=== PATIENT | male | born 1985 | race Caucasian/White ===

== ENCOUNTER 2019-12-04 11:39 | Inpatient (IN) | payer OTHER ==
[~2019-12-04] VITALS: Ht 172.7 cm; Wt 122.5 kg
[2019-12-04 15:14] LABS: PLATELET COUNT 229 x10^3mcL (130-400); RED CELL DISTRIBUTION WIDTH 14.1 % (11.5-14.5)
[2019-12-04 15:52] LABS: CALCIUM 9.3 mg/dL (8.5-10.1); CARBON DIOXIDE 14.4 mmol/L (21-32); CHLORIDE SERUM 98 mmol/L (98-107); CREATININE SERUM 0.8 mg/dL (0.7-1.3); GFR1 > 60 mL/min; GLUCOSE SERUM 278 mg/dL (74-106); POTASSIUM SERUM 4.7 mmol/L (3.5-5.1); SODIUM SERUM 136 mmol/L (136-145)
[2019-12-04 15:59] LABS: ALBUMIN 4.3 g/dL (3.4-5.0); ALKALINE PHOSPHATASE 133 U/L (46-116); ALT/SGPT 37 U/L (16-63); BILIRUBIN TOTAL 1.2 mg/dL (0.20-1.00)
[2019-12-04 16:02] LABS: TOTAL PROTEIN, SERUM 8.7 g/dL (6.4-8.2)
[2019-12-04 16:07] LABS: BAND NEUTROPHIL 3 % (0-10); BASOPHIL 0 % (0-2); MONOCYTE 4 % (0-7); SEGMENTED NEUTROPHILS 79 % (37-75)
[2019-12-04 16:08] LABS: rbc morphology (normal/abnorm) NORMAL (NORMAL)
[2019-12-04 16:22] LABS: AST/SGOT 28 U/L (15-37)
[2019-12-04 16:38] LABS: LIPASE 14074 IU/L (73-393)
[2019-12-04 20:39] VITALS: BP 159/104
[2019-12-04 20:46] VITALS: Ht 172.7 cm; Wt 122.5 kg
[2019-12-05 05:39] VITALS: BP 126/66; BP 152/99
[2019-12-05 06:41] LABS: BASOPHIL % 0.2 % (0-2); PLATELET COUNT 189 x10^3mcL (130-400)
[2019-12-05 07:24] LABS: CALCIUM 7.8 mg/dL (8.5-10.1); CARBON DIOXIDE 12.1 mmol/L (21-32); CHLORIDE SERUM 101 mmol/L (98-107); CREATININE SERUM 0.7 mg/dL (0.7-1.3); GFR1 > 60 mL/min; GLUCOSE SERUM 239 mg/dL (74-106); POTASSIUM SERUM 4.5 mmol/L (3.5-5.1); SODIUM SERUM 134 mmol/L (136-145)
[2019-12-05 10:01] VITALS: BP 133/84
[2019-12-05 14:03] VITALS: BP 146/83
[2019-12-05 18:27] VITALS: BP 144/81
[2019-12-05 20:22] VITALS: BP 159/76
[2019-12-06 05:11] VITALS: BP 149/93
[2019-12-06 08:32] VITALS: BP 156/89
[2019-12-06 11:59] VITALS: BP 153/94
[2019-12-06 16:13] VITALS: BP 145/91
[2019-12-06 20:57] VITALS: BP 145/82
[2019-12-07 05:18] VITALS: BP 146/87
[2019-12-07 08:37] VITALS: BP 123/86
[2019-12-07 11:34] VITALS: BP 123/86
== END 2019-12-07 11:51 | disposition home or self-care (01) | DRG 439 ==
LOC: ED 11:39 → DU 19:40
PROVIDERS: Internal Medicine; Specialist; ADMIT Hospitalist
DX: K85.20 Alcohol induced acute pancreatitis without necrosis or infection (principal); E87.1 Hypo-osmolality and hyponatremia; E11.65 Type 2 diabetes mellitus with hyperglycemia; E66.9 Obesity, unspecified; K76.0 Fatty (change of) liver, not elsewhere classified; Z90.49 Acquired absence of other specified parts of digestive tract
CPT/HCPCS: 82962; G0378; J2185; J2270; J2405; J2543; J3010; J3490; J7030; Q0092